=== PATIENT | female | born 1970 | race Caucasian/White ===

== ENCOUNTER 2024-03-05 06:35 | Outpatient (CLI) | payer BC, SELFPAY ==
--- NOTE | 2024-03-05 07:53 | W.ANESCHARGE ---
Anesthesia Charges Start Date/Time Anesthesia Start Date: 03/05/24 Anesthesia Start Time: 07:25 Stop Date/Time Anesthesia Stop Date: 03/05/24 Anesthesia Stop Time: 07:50
--- NOTE | 2024-03-05 09:12 | W.ANESCHARGE ---
Anesthesia Charges Start Date/Time Anesthesia Start Date: 03/05/24 Anesthesia Start Time: 07:25 Stop Date/Time Anesthesia Stop Date: 03/05/24 Anesthesia Stop Time: 07:50
== END 2024-03-05 06:36 | disposition home or self-care (01) ==
LOC: OP CLINIC 06:37
PROVIDERS: PCP Family Medicine; Visit Provider Internal Medicine Gastroenterology
DX: Z12.11 Encounter for screening for malignant neoplasm of colon (principal); K63.5 Polyp of colon; K57.30 Diverticulosis of large intestine without perforation or abscess without bleeding; Z87.19 Personal history of other diseases of the digestive system
CPT/HCPCS: 00811; 45380; 88305; J2704